=== PATIENT | female | born 1965 | race Two or more races ===

== ENCOUNTER 2024-06-19 02:33 | Emergency (ER) | payer BC, OTHER ==
[~2024-06-19] VITALS: Ht 152.4 cm; Wt 78.9 kg
[2024-06-19] MEDS ORDERED: diphenhydrAMINE HCL 50 MG/ML VIAL ONE (02:58)
[2024-06-19] MEDS ORDERED: hydrALAZINE HCL IV 20 MG VIAL ONE (02:58)
[2024-06-19] MEDS: diphenhydrAMINE HCL 50 MG/ML VIAL IV ONE (03:00)
[2024-06-19] MEDS: hydrALAZINE HCL IV 20 MG VIAL IV ONE (03:00)
[2024-06-19 03:20] LABS: BASOPHILS % (AUTO) 0.5 % (0.0-2.0); EOSINOPHILS # (AUTO) 0.1 K/uL (0.0-0.7); EOSINOPHILS % (AUTO) 1.1 % (0.0-6.0); HEMATOCRIT 38 % (33-45); HEMOGLOBIN 12.8 g/dL (11.5-14.8); LYMPHOCYTES # (AUTO) 2.7 K/uL (0.8-4.8); LYMPHOCYTES % (AUTO) 33.2 % (20.0-44.0); MEAN CORPUSCULAR HEMOGLOBIN 29 PG (26.0-33.0); MEAN CORPUSCULAR HGB CONC 33 g/dl (31.0-36.0); MEAN CORPUSCULAR VOLUME 88 fL (82-100); MONOCYTES # (AUTO) 0.5 K/uL (0.1-1.30); MONOCYTES % (AUTO) 6.2 % (2.0-12.0); NEUTROPHILS # (AUTO) 4.9 K/uL (1.8-8.9); PLATELET COUNT (AUTO) 307 K/uL (150-450); RED BLOOD CELL COUNT(AUTO) 4.36 MIL/uL (4.0-5.2); WHITE BLOOD COUNT (AUTO) 8.3 K/uL (4.3-11.0)
[2024-06-19 03:28] LABS: CALCIUM, SERUM 8.5 mg/dL (8.5-10.1); CREATININE 0.8 mg/dL (0.6-1.3); POTASSIUM 3.9 mmol/L (3.5-5.1)
[2024-06-19 03:35] LABS: BILIRUBIN,DIRECT 0.1 mg/dL (0.0-0.2); BILIRUBIN,TOTAL 0.3 mg/dL (0.2-1.0); TOTAL PROTEIN, SERUM 7.9 g/dL (6.4-8.2)
[2024-06-19] MEDS ORDERED: AMLO10TA4 PO (04:16)
[2024-06-19 04:44] VITALS: BP 165/93; TEMP 98.4; O2SAT 95
== END 2024-06-19 04:45 ==
LOC: ER 02:35
DX: I10 Essential (primary) hypertension (principal)
CPT/HCPCS: 99285; 96374; 70450; 71045; 96375; 93005; 85025; 80048; 80076; 36415; J1200; J0360